=== PATIENT | female | born 1955 | race Caucasian/White ===

== ENCOUNTER 2018-04-26 02:38 | Emergency (ER) | payer MEDICARE ==
--- NOTE | 2018-04-26 03:57 | RADIOLOGY REPORT (SQ) ---
EXAM DESCRIPTION: XR KNEE 3 VIEWS COMPLETED DATE/TME: 04/26/2018 03:04 CLINICAL HISTORY: 62 years Female, trauma COMPARISON: None. Findings: Mild osteoarthritis of the medial compartment.. Bones, joints, and soft tissues of the LEFT XR KNEE 3 VIEWS appear otherwise intact. IMPRESSION: No acute findings.
--- NOTE | 2018-04-26 04:52 | ER Document Report ---
ED General - General Chief Complaint: Knee Injury Stated Complaint: KNEE INJURY Time Seen by Provider: 04/26/18 02:59 Notes: Patient is a 62-year-old female presents with complaints of knee pain. She says that she was trying to break up her dog fighting with another dog and she was kicking the other dog. When she was taking her dog she twisted her left knee. She says she is now having a hard time walking her knees is painful. She says the pain is mostly in the anterolateral aspect of her knee. No previous surgeries to the knee. She denies pain into her ankles feet or remainder of her leg. No pain to the hip. - Related Data Allergies/Adverse Reactions: morphine Allergy (Verified 04/26/18 02:42) Pruritis Sulfa (Sulfonamide Antibiotics) Allergy (Verified 04/26/18 02:42) Pruritis Past Medical History - Social History Smoking Status: Unknown if Ever Smoked Frequency of alcohol use: None Drug Abuse: None Family History: Reviewed & Not Pertinent Patient has suicidal ideation: No Patient has homicidal ideation: No Renal/ Medical History: Denies: Hx Peritoneal Dialysis Review of Systems - Review of Systems Notes: My Normal Review Basic REVIEW OF SYSTEMS: CONSTITUTIONAL : Denies fever, chills, or sweats. Denies recent illness. MUSCULOSKELETAL: Left knee pain NEUROLOGICAL: Denies sensory or motor loss. ALL OTHER SYSTEMS REVIEWED AND NEGATIVE. Physical Exam - Vital signs Vitals: Temp Pulse Resp BP Pulse Ox 98.5 F 56 L 18 131/68 H 96 04/26/18 05:05 04/26/18 05:05 04/26/18 05:05 04/26/18 05:05 04/26/18 05:05 - Notes Notes: General Appearance: Well nourished, alert, cooperative, no acute distress, moderate obvious discomfort. Well-appearing Vitals: reviewed, See vital signs table. Head: no swelling or tenderness to the head Eyes: PERRL, EOMI, Conjuctiva clear Extremities: strength 5/5 in all extremities, good pulses in all extremities, no significant swelling to the knee. She does have pain to palpation over the lateral aspect of the knee and over the tibial plateau. She is able to fully extend the knee against gravity without any difficulty. Sensation intact. Good cap refill in the foot. Good pulses distal pulses. Skin: warm, dry, appropriate color, no rash Neuro: speech clear, oriented x 3, normal affect, responds appropriately to questions. Course - Re-evaluation Re-evalutation: 04/26/18 06:28 Based on patient's exam negative x-rays suspect she has any strain. We will give her crutches and Raimundo wrap for knee. I encouraged her follow-up with orthopedics. She says she wants to follow-up with orthopedics in [place] and therefore gave her the number to the [place] [facility]. Encouraged her return to ER if she has worsening pain, or if she has any further concerns. Patient agrees with plan will be discharged home. Dictation of this chart was performed using voice recognition software; therefore, there may be some unintended grammatical errors. - Vital Signs Vital signs: Temp Pulse Resp BP Pulse Ox 98.5 F 56 L 18 131/68 H 96 04/26/18 05:05 04/26/18 05:05 04/26/18 05:05 04/26/18 05:05 04/26/18 05:05 Discharge - Discharge Clinical Impression: Strain of knee and leg, left Qualifiers: Encounter type: initial encounter Qualified Code(s): S86.912A - Strain of unspecified muscle(s) and tendon(s) at lower leg level, left leg, initial encounter Condition: Good Disposition: HOME, SELF-CARE Instructions: Use of Crutches ([facility]), Sprained Knee ([facility]) Additional Instructions: Please stay non-weight bearing of the left knee until you are evaluated by orthopedics. Please call the orthopedic office on Tuesday to be reevaluation. The orthopedic office in [place] is [facility]. Their phone number is [phone]. Please return to the ER if you have worsening pain, severe swelling, or feel unwell.
[2018-04-26 05:06] VITALS: BP 131/68
== END 2018-04-26 05:06 | disposition home or self-care (01) ==
LOC: ER 02:38
DX: S86.912A Strain of unspecified muscle(s) and tendon(s) at lower leg level, left leg, initial encounter (principal); X50.1XXA Overexertion from prolonged static or awkward postures, initial encounter
CPT/HCPCS: 99283